=== PATIENT | female | born 1965 | race Caucasian/White ===

== ENCOUNTER → 2024-05-26 11:01 | Outpatient (CLI) | payer OTHER, SELFPAY ==
[2024-05-26 12:58] LABS: Add Manual Diff / Slide Review NO; Basophils Absolute Auto 0 /uL (0-100); Basophils Percent Auto 0.6 % (0-2); Eosinophils Absolute Auto 100 /uL (0-450); Eosinophils Percent Auto 2.2 % (2-4); Hematocrit 41.9 % (36-46); Hemoglobin 14.1 g/dL (12.0-16.0); Lymphocytes Absolute Auto 1000 /uL (1100-4500); Lymphocytes Percent Auto 33.4 % (25-40); Mean Corpuscular HGB Conc 33.5 % (30-36); Mean Corpuscular Hemoglobin 30.2 PG (26-34); Mean Corpuscular Volume 90.1 fL (80-100); Monocytes Absolute Auto 300 /uL (0-900); Monocytes Percent Auto 9.1 % (3-14); Neutrophils Absolute Auto 1700 /uL (1500-7000); Neutrophils Percent Auto 54.7 % (50-75); Platelet Count 268 X10^3/uL (150-400); Red Blood Cell Count 4.65 X10^6/uL (4.0-5.2); White Blood Cell Count 3.1 X10^3/uL (4.5-11.0)
[2024-05-26 13:31] LABS: Alanine Aminotransferase 24 IU/L (<35); Albumin 4.4 g/dL (3.5-5.0); Albumin Globulin Ratio 1.6 (1.0-2.8); Alkaline Phosphatase 101 U/L (38-126); Aspartate Aminotransferase 23 IU/L (14-36); BUN Creatinine Ratio 22.2 (6-22); Bilirubin Total 0.6 mg/dL (0.2-1.3); Blood Urea Nitrogen 16 mg/dL (7-17); Calcium 9.9 mg/dL (8.4-10.2); Carbon Dioxide 26 mmol/L (22-32); Chloride 106 mmol/L (98-107); Cholesterol 226 mg/dL (140-199); Estimated Glomerular Filt Rate > 60 mL/min (>60); Globulin 2.8 g/dL (1.7-4.1); Glucose 92 mg/dL (70-100); HDL Cholesterol 72 mg/dL (40-60); HEMOLYSIS < 15 (0-50); LDL Cholesterol Calculated 142 mg/dL (<100); Potassium 4.6 mmol/L (3.4-5.1); Sodium 140 mmol/L (137-145); Total Protein 7.2 g/dL (6.3-8.2); Triglycerides 61 mg/dL (35-150)
[2024-05-26 13:44] LABS: Free T3, Triiodothyronine Free 3.28 pg/mL (2.77-5.27); Free T4, Direct Thyroxine 0.98 ng/dL (0.78-2.19)
[2024-05-26 13:58] LABS: Thyroid Stimulating Hormone 2.28 uIU/mL (0.47-4.68)
[2024-05-26 14:25] LABS: HIV 1 & 2 Ab/Ag 4th Gen Combo NEGATIVE (NEGATIVE); Hep C Virus Ab w/Reflex Quant NEGATIVE s/c (NEGATIVE)
[2024-05-26 14:36] LABS: Creatinine Urine Random 113.04 mg/dL
[2024-05-26 14:42] LABS: Microalbumin Urine Random 0.7 mg/dL (0-1.6)
== END ==
PROVIDERS: PCP Nurse Practitioner; Referring Provider Nurse Practitioner; Visit Provider Nurse Practitioner
DX: Z00.00 Encounter for general adult medical examination without abnormal findings (principal); Z11.4 Encounter for screening for human immunodeficiency virus [HIV]; Z11.59 Encounter for screening for other viral diseases
CPT/HCPCS: 36415; 80053; 80061; 82043; 82570; 84439; 84443; 84481; 85025; 86803; 87389

== ENCOUNTER → 2024-08-06 09:49 | Outpatient (CLI) | payer OTHER, SELFPAY | LOC: CAR 09:49 | PROVIDERS: PCP Nurse Practitioner; Referring Provider Nurse Practitioner; Visit Provider Nurse Practitioner | DX: R00.1 Bradycardia, unspecified (principal) | CPT/HCPCS: 93242 ==

== ENCOUNTER 2024-11-05 08:07 | Day surgery (SDC) | payer OTHER, SELFPAY ==
--- NOTE | 2024-11-05 | PATH_ITS ---
[facility] Accession Number: [id number] No. of containers..01 Tissue . 01 Material submitted: . colon - ASCENDING POLYP . 01 Diagnosis: ASCENDING COLON POLYP, BIOPSY: Tubular adenoma. MRV 11/11/2024 1236 Local . 01 Electronically signed: . Tyra Otero MD, Pathologist NPI- [id number] . 01 Gross description: . Received in formalin with two patient identifiers and ascending polyp, is a single castle soft tissue fragment, 0.3 in greatest dimension, submitted in A1. ([email or web address] [id number]) /MRV 11/06/2024 1314 Local . 01 Pathologist provided ICD-10: Z12.11, D12.2 . 01 CPT . 165679 Specimen Comment: A courtesy copy of this report has been sent to [phone] Performed at: [address] [facility] [address], [place], [place] [id number] MD Yunior Seth MD Phone: [phone]
[2024-11-05 08:47] VITALS: BP 166/88; PULSE 71; RESP 16; TEMP 36.1; O2SAT 100
--- NOTE | 2024-11-05 09:03 | PM.HP.1 ---
History of Present Illness History of Present Illness Date Patient Seen: 11/05/24 Time Patient Seen: 09:03 Chief complaint: Screening Colonoscopy Narrative: Nicolette is a 59-year-old woman who is here for her first colonoscopy. No known family history of colon cancer. [facility] Social History Smoking Status: Never smoker alcohol intake: current Meds Home Medications and Allergies Home Medications Medication Instructions Recorded Confirmed Type estradiol 0.0375 mg/24 hr 1 patch transdermal 2XW #24 ea 05/26/24 11/05/24 Rx semiweekly transdermal patch progesterone micronized 100 mg 100 mg PO BEDTIME 90 days #90 caps 05/26/24 11/05/24 Rx capsule Allergies Allergy/AdvReac Type Severity Reaction Status Date / Time No Known Drug Allergies Allergy Unverified 05/26/24 09:50 Exam Vital Signs (past 8 hours): - 11/05/24 08:47 Temperature 97 F L Pulse Rate 71 Respiratory Rate 16 Blood Pressure 166/88 H Pulse Oximetry 100 Oxygen Delivery Method Room Air Oxygen Delivery Method Room Air Const General: No acute distress Resp Effort & Inspection: normal respiratory effort Assessment & Plan Assessment and plan (1) Colon cancer screening: Status: Acute Plan Colonoscopy Time-Based Coding :: [TOTAL MINUTES] spent with patient and on the chart (including review of chart, obtaining history, exam, reviewing outside data, placing orders, documenting exam and treatment plan, and counseling patient) on [DATE].
--- NOTE | 2024-11-05 10:12 | PM.OP.COLON ---
Operative Date/Time/Diagnoses Date of procedure: 11/05/24 Time of procedure: 10:12 Pre-op diagnosis: Colon cancer screening Post-op diagnosis: same Procedure & Clinicians Study performed: Colonoscopy Same procedure as scheduled: Yes Surgeon: Srikanth Kirk Procedure Notes Procedure in detail: Surgeon: Srikanth Kirk MD Anesthesia: Pj Zendejas CRNA Procedure: The patient was brought to the endoscopy suite, placed in left lateral decubitus position. The patient was connected to monitoring devices. A time-out was performed. Sedation was administered. Once the patient was adequately sedated, a digital rectal exam was performed and was normal. The scope was then inserted and advanced to the cecum where the appendiceal orifice was identified and photographed. The scope was then slowly withdrawn over greater than 6 minutes. The mucosa was thoroughly inspected. There was a 3 mm polyp in the ascending colon removed with a cold snare. The scope was retroflexed in the rectum. No other abnormalities were found. The scope was straightened and removed. The patient was awakened and brought to recovery. Scope withdrawal time: 7 minutes Sedation time: 19 minutes EBL: 5 mL Findings: 3 mm polyp in the ascending colon Post-procedure Disposition: PACU
[2024-11-05 10:15] VITALS: BP 138/80; PULSE 56; RESP 16; TEMP 36.2; O2SAT 99
[2024-11-05 10:19] VITALS: BP 129/79; PULSE 60; RESP 20; TEMP 36.2; O2SAT 99
[2024-11-05 10:27] VITALS: BP 139/70; PULSE 61; RESP 15; TEMP 36.3; O2SAT 99
== END 2024-11-05 10:42 | disposition home or self-care (01) ==
PROVIDERS: PCP Family Medicine; Referring Provider Surgery; Visit Provider Surgery
PROC: 0DJD8ZZ Inspection of Lower Intestinal Tract, Via Natural or Artificial Opening Endoscopic (ICD-10-PCS; CPT 45378; principal; 2024-11-05 09:15)
DX: Z12.11 Encounter for screening for malignant neoplasm of colon (principal)
CPT/HCPCS: 45385; J2704